=== PATIENT | female | born 1960 | race Caucasian/White ===

== ENCOUNTER → 2018-08-02 | Outpatient (CLI) | payer OTHER ==
[~2018-08-02] MED LIST: LEVO112T43 PO; LEVO75TA73 PO
--- NOTE | 2018-08-02 15:18 | RADIOLOGY IMAGING REPORT ---
FACILITY: [facility] PATIENT NAME: SHANIA ÁLVAREZ : [id number] MR: [id number] V: [id number] EXAM DATE: ORDERING PHYSICIAN: CHAR SCHAFFER TECHNOLOGIST: Jessica Capps PROCEDURE:BILATERAL DIGITAL SCREENING MAMMOGRAM WITH CAD ASSISTED INTERPRETATION & 3D TOMOSYNTHESIS COMPARISON:Prior mammograms 05/25/17, 04/26/16, 03/23/16, 03/18/15, 03/10/14. INDICATIONS:SCREENING FINDINGS: The breasts are heterogeneously dense which can obscure small masses. The parenchymal pattern has remained stable allowing for difference in mammographic technique & patient positioning. DIAGNOSTIC CATEGORY 1--NEGATIVE. RECOMMENDATIONS: ROUTINE MAMMOGRAM AND CLINICAL EVALUATION. IMPRESSION: BIRADS 1: Negative. No significant abnormality is seen. Dictated by: Angeles Mtz M.D. on 08/02/2018 at 11:20 Transcribed by: KIANA on 08/02/2018 at 11:28 Approved by: Angeles Mtz M.D. on 08/02/2018 at 15:17 [facility]
== END ==
LOC: MAMO 01:22
PROVIDERS: ATTEND Obstetrics & Gynecology
DX: Z12.31 Encounter for screening mammogram for malignant neoplasm of breast (principal)
CPT/HCPCS: 77063; 77067